=== PATIENT | male | born 1960 | race Caucasian/White ===

== ENCOUNTER 2024-05-27 20:07 | Observation (INO) ==
--- NOTE | 2024-05-27 21:05 | Emergency Department Note ---
History of Present Illness General Chief complaint: Hip Pain Stated complaint: LEFT HIP GROIN THIGH PAIN, Time Seen by Provider: 05/27/24 20:50 History of Present Illness Maximum Pain Intensity: 11 This is a 63-year-old male that presents to the emergency department via private vehicle with complaints of "left hip/leg pain". The patient notes that last Friday he developed pain in the lower abdomen bilaterally. No trauma. No injury. This past Friday the pain moved into the low back area and then left flank/left groin area. He notes that since Friday the pain has been severe and he has never experienced pain like this before in his life. He denies any lower extremity weakness, bowel or bladder incontinence, numbness or tingling in the genital region. No fevers or infectious symptoms. Pain worsens with ambulation and certain movements and is mildly better with rest/immobilization. The patient denies any abdominal pain at this time. He notes the pain radiates from the left hip region/low back into the left anterior thigh where there is numbness. He denies any pain with axial loading the leg. Home Medications Medication Instructions Recorded Confirmed Type aspirin 81 mg tablet,delayed 81 mg PO DAILY ##0 12/22/10 05/25/24 History release rosuvastatin 10 mg tablet 10 mg PO QAM 05/25/24 05/25/24 History cyclobenzaprine 10 mg tablet 10 mg PO TID PRN muscle spasm #15 05/26/24 Rx tabs methylprednisolone 4 mg tablets in See Rx Instructions .Route 05/26/24 Rx a dose pack (Medrol (Vincenzo)) .COMPLEX #21 ea Allergies Allergy/AdvReac Type Severity Reaction Status Date / Time No Known Allergies Allergy Unverified 05/25/24 08:55 Past Med/Surg History Problem List (Updated 05/28/24 @ 00:09 by Joon Sethi PA-C) Abnormal MRI, lumbar spine (Acute) Acute left lumbar radiculopathy (Acute) Abdominal wall pain in left flank (Acute) Medical History No pertinent past medical history Social History Smoking Status: Never smoker Preferred Language: Turkish Feels Safe at Home: Yes Review of Systems A total of 10 systems reviewed and were otherwise negative Physical Exam Vital Signs Vital Signs - 24 hr 05/27/24 20:15 05/27/24 21:28 05/27/24 22:08 Temperature 36.6 C Temperature Source Temporal Artery Scan Pulse Rate 81 Pulse Rate [Apical] 85 Pulse Rhythm [Apical] Regular Respiratory Rate 18 18 Respiratory Effort / Characteristics Non-Labored Spontaneous Non-Labored Spontaneous Respiratory Depth Normal Normal Respiratory Pattern Blood Pressure 142/73 H Blood Pressure [Right Arm] 160/92 H Blood Pressure Mean 96 Blood Pressure Mean [Right Arm] 114 Pulse Oximetry 95 96 96 Oxygen Delivery Method Room Air Room Air Room Air Sepsis Recent Fever Within 48 Hours No Sepsis New/Unexplained Change in Mental Status No Sepsis Action Taken by Nursing No Action Required 05/28/24 00:00 Temperature Temperature Source Pulse Rate Pulse Rate [Apical] 71 Pulse Rhythm [Apical] Regular Respiratory Rate 19 Respiratory Effort / Characteristics Non-Labored Spontaneous Respiratory Depth Normal Respiratory Pattern Regular Blood Pressure Blood Pressure [Right Arm] 141/91 H Blood Pressure Mean Blood Pressure Mean [Right Arm] 107 Pulse Oximetry 95 Oxygen Delivery Method Room Air Sepsis Recent Fever Within 48 Hours Sepsis New/Unexplained Change in Mental Status Sepsis Action Taken by Nursing VITAL SIGNS - Vital signs and nursing notes were reviewed. Stable, afebrile. GENERAL -63-year-old male appearing his stated age who is in no acute distress. Communicates well with provider and answers questions appropriately. SKIN - Without rashes. No meningeal or petechial rash. No herpetic lesions HEAD - NC/AT. EYES - Sclera anicteric. NOSE - Midline and without cyanosis. No epistaxis or purulent drainage noted. MOUTH/OROPHARYNX - Without perioral cyanosis. NECK - Neck with FROM. No nuchal rigidity. LUNGS - CTA CARDIAC - RRR ABDOMEN - Abdominal contour normal without pulsations or visible masses. BS normoactive all four quadrants. No tenderness, palpable masses, hepatosplenomegaly, or ascites noted. EXTREMITIES - No clubbing or peripheral cyanosis. +5/5 strength noted in UE/LE bilaterally. NEUROLOGIC - Cranial nerves grossly intact. Patellar reflexes +2/4. MUSCULOSKELETALno reproducible tenderness overlying the L-spine or paraspinous musculature. There is no left hip tenderness. Passive range of motion of the left hip does not reproduce any discomfort. Axial loading of the legs do not reproduce discomfort. PSYCH -alert, oriented and pleasant on exam. Course Administered Medications Discontinued Medications Dexamethasone Sodium Phosphate (DexamethasonePf 10 Mg/Ml Vial) 10 mg IV NOW ONE Stop: 05/27/24 23:26 Last Admin: 05/28/24 00:05 Dose: 10 mg Documented By: GI Ketorolac Tromethamine (Ketorolac Tromethamine 15 Mg/Ml Vial) 10 mg IV NOW ONE Stop: 05/27/24 23:26 Last Admin: 05/28/24 00:05 Dose: 10 mg Documented By: GI Lidocaine (Lidocaine 5% 1 Patch) 1 patch TD NOW STA Stop: 05/27/24 22:08 Last Admin: 05/27/24 22:17 Dose: 1 patch Documented By: CHRISTINE Morphine Sulfate (Morphine Sulfate 4 Mg/Ml 1 Ml Carp\\Vial) 4 mg IV NOW STA Stop: 05/27/24 21:03 Last Admin: 05/27/24 21:23 Dose: 4 mg Documented By: CONG Morphine Sulfate (Morphine Sulfate 2 Mg/Ml Carp) 2 mg IV NOW STA Stop: 05/27/24 23:26 Last Admin: 05/28/24 00:01 Dose: 2 mg Documented By: GI Ondansetron HCl (Ondansetron Inj 2 Mg/Ml 2 Ml Vial) 4 mg IV NOW STA Stop: 05/27/24 21:03 Last Admin: 05/27/24 21:23 Dose: 4 mg Documented By: CONG Medical Decision Making Laboratory Data 05/27/24 21:11 05/27/24 21:11 Lab Results 05/27/24 Range/Units 21:11 WBC 7.64 (4.8-10.8) K/ul RBC 4.95 (4.70-6.10) M/uL Hgb 16.0 (14.0-18.0) g/dl Hct 45.5 (42.0-52.0) % MCV 91.9 (80.0-100.0) fL MCH 32.3 (25.0-34.0) pg MCHC 35.2 (32.0-36.0) g/dL RDW Std Deviation 41.6 (36.4-46.3) fL RDW Coeff of Watson 12.3 (11.5-14.5) % Plt Count 227 (130-400) K/uL MPV 9.1 L (9.4-12.4) fL Immature Gran % (Auto) 0.3 % Neut % (Auto) 81.2 % Lymph % (Auto) 10.5 % Mitchell % (Auto) 7.3 % Eos % (Auto) 0.4 % Baso % (Auto) 0.3 % Neut # (Auto) 6.21 (1.40-6.50) K/uL Lymph # (Auto) 0.80 L (1.20-3.40) K/uL Mitchell # (Auto) 0.56 (0.11-0.59) K/uL Eos # (Auto) 0.03 (0.00-0.50) K/uL Baso # (Auto) 0.02 (0.00-0.20) K/uL Immature Gran # (Auto) 0.02 (0.01-0.20) K/uL Sodium 136 (136-145) mmol/L Potassium 4.6 (3.5-5.1) mmol/L Chloride 108 H (98-107) mmol/L Carbon Dioxide 22 (21-32) mmol/L Anion Gap 6 (3-11) BUN 19 (6-23) mg/dl Creatinine 1.05 (0.6-1.4) mg/dl Est Cr Clr Drug Dosing 82.6 ml/min eGFR 79.27 BUN/Creatinine Ratio 18.1 (10-20) Glucose 109 H (70-99(Fasting)) mg/dl Calcium 9.5 (8.6-10.3) mg/dl Total Bilirubin 0.6 (0.2-1.0) mg/dl AST 20 (13-39) U/L ALT 15 (7-52) U/L Alkaline Phosphatase 58 (34-104) U/L Total Protein 7.4 (6.0-8.3) gm/dl Albumin 4.4 (3.4-5.0) gm/dl Globulin 3.0 (2.5-4.0) gm/dl Albumin/Globulin Ratio 1.5 (0.9-2) Imaging Data Radiologist's Impression: Lumbar Spine MRI 05/27/24 21:02 Exam(s): MRI L SPINE Without Contrast EXAM: MR Lumbar Spine Without Intravenous Contrast CLINICAL HISTORY: Reason for exam: Low back pain, L leg numbness. TECHNIQUE: Magnetic resonance images of the lumbar spine without intravenous contrast in multiple planes. COMPARISON: Prior CT scan of the abdomen and pelvis from May 25, 2024. FINDINGS: Vertebrae: There are 5 lumbar type vertebral bodies with a mild levoscoliosis and dextroscoliosis of the thoracolumbar junction. There is a shallow lumbar lordosis. There is normal vertebral body height and alignment. The bone marrow signal is heterogeneous with reactive endplate changes, and areas of focal fat or venous malformations. There is a large Schmorl's node at the inferior endplate of L1 with mild bone marrow edema. No acute fracture. 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 Soft tissues: Moderate atrophy of the iliopsoas, paraspinous intraspinous musculature. There is increased fluid signal within the interspinous bursa at L3-4, L4-5 and L5-S1. The aorta and IVC flow voids are intact. The visualized kidneys are unremarkable. DISCS/SPINAL CANAL/NEURAL FORAMINA: L1-L2: There is mild disc degeneration with annular disc bulge causing a mild subarticular recess stenosis with disc extending to the neural foramina without evidence of impingement or significant stenosis. There is mild facet joint arthropathy with mild synovitis. L2-L3: There is mild disc degeneration with annular disc bulge asymmetric to the left with superimposed left paracentral disc extrusion measuring 16.7 mm (CC) by 3.3 mm (AP) causing a mild left subarticular recess stenosis. There is a mild spinal canal stenosis with thecal sac area measuring 0.89 cm. There is mild facet arthropathy with mild synovitis. L3-L4: Moderate disc degeneration with annular disc bulge causing mild subarticular recess stenosis with superimposed congenital intrahepatic levels causing a mild spinal canal stenosis with thecal sac area measuring 0.88 cm. There is disc and osteophyte extending to the neural foramina without impingement or significant stenosis. There is mild facet joint arthropathy with mild synovitis. L4-L5: Moderate disc degeneration with annular disc bulge asymmetric to the left causing a mild subarticular recess stenosis with disc and osteophyte extending to the neural foramina causing a mild right stenosis without evidence of neural impingement. There is mild facet joint arthropathy with mild synovitis. L5-S1: Moderate disc degeneration with a no disc bulge asymmetric to the left causing a mild right and moderate left subarticular recess stenosis with impingement of the transiting left S1 nerve root. There is disc and osteophyte extending to the neural foramina causing a mild right stenosis without evidence of neural impingement. There is mild facet arthropathy with mild synovitis. IMPRESSION: 1. Moderate disc degeneration at L3-4, L4-5, L5-S1 and mild disc degeneration at L1-2 and L2-3 with annular disc bulging or disc extrusion causing a mild subarticular recess stenosis at L1-L2, L2-3, L3-4, L4-5 and a mild right and moderate left subarticular recess stenosis at L5-S1 with impingement of the transiting left S1 nerve root. 2. There is a mild spinal canal stenosis at L2-3 and L3-4. 3. There is a mild right L4-5 and mild right L5-S1 neural foraminal stenosis without evidence of neural impingement. 4. There is mild facet joint arthropathy with mild synovitis. 5. Interspinous bursitis at L3-4, L4-5 and L5-S1. 6. No evidence of fracture, infection, tumor or arachnoiditis. Electronically signed by: Chen Moulton MD 05/27/24 23:08 PM MDM Narrative Patient was seen and evaluated as above in room D02. Review was performed of triage nursing notes and vital signs. I did review pertinent previous visits and patient history. After obtaining a thorough history and physical examination the above work up was performed. Patient presents to us today for assessment of left low back pain radiating to the left leg with left leg numbness that traverses to the left knee region. This seems to be in the lumbar dermatome. No deficits on assessment. Patient appears to be in pain on exam. No infectious symptoms. I will note rather unremarkable CT scan of the abdomen/pelvis was performed 2 days ago as well as laboratory studies. IV access with established. Labs were drawn. There is no leukocytosis or concerning anemia. No emergent metabolic disturbance. Patient was medicated here with IV morphine, IV Zofran and MRI of the L-spine was performed. Results as above. I reviewed the imaging as well. I do suspect much of this is a component of lumbar radiculopathy. Noting the patient's severity despite outpatient steroids, muscle relaxer, prescription analgesia such as Percocet, OTC analgesia like ibuprofen and acetaminophen as well as rest without relief with continued discomfort here despite medicine I do believe that further evaluation and management in the inpatient setting is warranted. I did order additional IV morphine, IV Toradol, IV dexamethasone. It was felt that the benefit outweighed risk. Case discussed with the hospitalist service. Please refer to further documentation regarding his stay. I do not suspect any emergent cord issue at this time. GCS: 15 In the evaluation and treatment of this patient the following differential diagnosis entertained: Fracture, dislocation, subluxation, cauda equina syndrome, AAA, diverticulitis, appendicitis, torsion, osteomyelitis, piriformis syndrome, strain, sprain, among others. Impression & Plan Acute left lumbar radiculopathy, Abnormal MRI, lumbar spine Discharge Plan Visit Data Chief Complaint: Hip Pain Stated Complaint: LEFT HIP GROIN THIGH PAIN, ED Provider: Raghavendra Biggs ED Midlevel Provider: Joon Sethi Discharge Problem: Acute left lumbar radiculopathy, Abnormal MRI, lumbar spine Patient Disposition: Admitted As Inpatient Condition: Good Forms Stand Alone Forms: My [facility] Prescriptions Prescriptions: No Action aspirin 81 mg Tablet,Delayed Release (Dr/Ec) 81 mg PO DAILY Qty: 0 rosuvastatin 10 mg tablet 10 mg PO QAM cyclobenzaprine 10 mg tablet 10 mg PO TID PRN (Reason: muscle spasm) Qty: 15 0RF methylprednisolone [Medrol (Vincenzo)] 4 mg tablets,dose pack See Rx Instructions .ROUTE .COMPLEX Qty: 21 0RF Rx Instructions: Take as directed on pack Referrals Referrals: Elio Ni MD [Primary Care Provider] -
[2024-05-27] MEDS: MoRPHine SULFATE 4 MG/ML 1 ML CARP\\VIAL IV STA (21:23)
[2024-05-27] MEDS: ONDANSETRON INJ 2 MG/ML 2 ML VIAL IV STA (21:23)
[2024-05-27 21:42] LABS: Basophils # (auto) 0.02 K/uL (0.00-0.20); Basophils % (auto) 0.3 %; Eosinophils # (auto) 0.03 K/uL (0.00-0.50); Eosinophils % (auto) 0.4 %; Hematocrit (blood only) 45.5 % (42.0-52.0); Immature Granulocytes # (auto) 0.02 K/uL (0.01-0.20); Immature Granulocytes % (auto) 0.3 %; Lymphocytes % (auto) 10.5 %; Mean Corpuscular Hemoglobin 32.3 pg (25.0-34.0); Mean Corpuscular Hgb Conc 35.2 g/dL (32.0-36.0); Mean Corpuscular Volume 91.9 fL (80.0-100.0); Mean Platelet Volume 9.1 fL (9.4-12.4); Monocytes # (auto) 0.56 K/uL (0.11-0.59); Monocytes % (auto) 7.3 %; Neutrophils # (auto) 6.21 K/uL (1.40-6.50); Neutrophils % (auto) 81.2 %; Platelet Count 227 K/uL (130-400); RDW Coefficient of Variation 12.3 % (11.5-14.5); RDW Standard Deviation 41.6 fL (36.4-46.3); Red Blood Count 4.95 M/uL (4.70-6.10); White Blood Count 7.64 K/ul (4.8-10.8)
[2024-05-27 21:50] LABS: Albumin Globulin Ratio 1.5 (0.9-2); Albumin Level 4.4 gm/dl (3.4-5.0); BUN Creatinine Ratio 18.1 (10-20); Bilirubin,Total 0.6 mg/dl (0.2-1.0); Calcium 9.5 mg/dl (8.6-10.3); Creatinine Clr Calc Pharmacy 82.6 ml/min; Potassium 4.6 mmol/L (3.5-5.1); Total Protein 7.4 gm/dl (6.0-8.3)
[2024-05-27] MEDS: LIDOCAINE 5% 1 PATCH TD STA (22:17)
--- NOTE | 2024-05-27 23:10 | Magnetic Resonance Report ---
Exam(s): MRI L SPINE Without Contrast EXAM: MR Lumbar Spine Without Intravenous Contrast CLINICAL HISTORY: Reason for exam: Low back pain, L leg numbness. TECHNIQUE: Magnetic resonance images of the lumbar spine without intravenous contrast in multiple planes. COMPARISON: Prior CT scan of the abdomen and pelvis from May 25, 2024. FINDINGS: Vertebrae: There are 5 lumbar type vertebral bodies with a mild levoscoliosis and dextroscoliosis of the thoracolumbar junction. There is a shallow lumbar lordosis. There is normal vertebral body height and alignment. The bone marrow signal is heterogeneous with reactive endplate changes, and areas of focal fat or venous malformations. There is a large Schmorl's node at the inferior endplate of L1 with mild bone marrow edema. No acute fracture. 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 Soft tissues: Moderate atrophy of the iliopsoas, paraspinous intraspinous musculature. There is increased fluid signal within the interspinous bursa at L3-4, L4-5 and L5-S1. The aorta and IVC flow voids are intact. The visualized kidneys are unremarkable. DISCS/SPINAL CANAL/NEURAL FORAMINA: L1-L2: There is mild disc degeneration with annular disc bulge causing a mild subarticular recess stenosis with disc extending to the neural foramina without evidence of impingement or significant stenosis. There is mild facet joint arthropathy with mild synovitis. L2-L3: There is mild disc degeneration with annular disc bulge asymmetric to the left with superimposed left paracentral disc extrusion measuring 16.7 mm (CC) by 3.3 mm (AP) causing a mild left subarticular recess stenosis. There is a mild spinal canal stenosis with thecal sac area measuring 0.89 cm. There is mild facet arthropathy with mild synovitis. L3-L4: Moderate disc degeneration with annular disc bulge causing mild subarticular recess stenosis with superimposed congenital intrahepatic levels causing a mild spinal canal stenosis with thecal sac area measuring 0.88 cm. There is disc and osteophyte extending to the neural foramina without impingement or significant stenosis. There is mild facet joint arthropathy with mild synovitis. L4-L5: Moderate disc degeneration with annular disc bulge asymmetric to the left causing a mild subarticular recess stenosis with disc and osteophyte extending to the neural foramina causing a mild right stenosis without evidence of neural impingement. There is mild facet joint arthropathy with mild synovitis. L5-S1: Moderate disc degeneration with a no disc bulge asymmetric to the left causing a mild right and moderate left subarticular recess stenosis with impingement of the transiting left S1 nerve root. There is disc and osteophyte extending to the neural foramina causing a mild right stenosis without evidence of neural impingement. There is mild facet arthropathy with mild synovitis. IMPRESSION: 1. Moderate disc degeneration at L3-4, L4-5, L5-S1 and mild disc degeneration at L1-2 and L2-3 with annular disc bulging or disc extrusion causing a mild subarticular recess stenosis at L1-L2, L2-3, L3-4, L4-5 and a mild right and moderate left subarticular recess stenosis at L5-S1 with impingement of the transiting left S1 nerve root. 2. There is a mild spinal canal stenosis at L2-3 and L3-4. 3. There is a mild right L4-5 and mild right L5-S1 neural foraminal stenosis without evidence of neural impingement. 4. There is mild facet joint arthropathy with mild synovitis. 5. Interspinous bursitis at L3-4, L4-5 and L5-S1. 6. No evidence of fracture, infection, tumor or arachnoiditis. Electronically signed by: Chen Moulton MD 05/27/24 23:08 PM
[2024-05-28] MEDS: MoRPHine SULFATE 2 MG/ML CARP IV STA (00:01)
[2024-05-28] MEDS: KETOROLAC TROMETHAMINE 15 MG/ML VIAL IV ONE (00:05)
[2024-05-28] MEDS: dexAMETHasone**PF** 10 MG/ML VIAL IV ONE (00:05)
[2024-05-28] MEDS: oxyCODONE HCL IR 5 MG TAB (IMMEDIATE RELEASE) PO PRN (03:51)
--- NOTE | 2024-05-28 04:13 | History & Physical Report ---
Date of Service May 28, 2024 Assessment & Plan (1) Acute left lumbar radiculopathy: Plan: 63-year-old male with past med history significant for hyperlipidemia, obstructive sleep apnea on CPAP comes because of severe back pain. Patient states since last Friday developed lower abdominal pain. On the Friday the pain was more in low back coming down to the groin area on the left side. He was in the ER on May 25 and CAT scan of abd/pelvis was done which showed mild to moderate fecal retention otherwise unremarkable study. Patient discharged home to follow-up with PCP. He was also called back again and prescribed cyclobenzaprine as needed and Medrol Dosepak. Patient was also taking Tylenol and ibuprofen as needed. But the pain was severe radiating to left groin region. And also was feeling numbness in the left thigh region which prompted him to come to back to the ER. Denies any bowel or bladder incontinence. Lying down is okay but states when he ambulates the pain shoots up. Denies any fevers. No chest pain or shortness of breath. No nausea or vomiting. No headache or dizziness. No blurred visions or double visions. No earache or runny nose or sore throat. Hemodynamics are okay. Patient was able to ambulate to the bathroom in the ER. Acute left lumbar radiculopathy Having pain in the back radiating to the left groin and numbness in left thigh region MRI results as above Received Decadron and pain meds in the ER Will monitor in medical floor Pain control [facility] consult in a.m. for further recommendations History of hyperlipidemia Statin Obstructive sleep apnea CPAP nightly DVT prophylaxis Lovenox Disposition Medical floor Full code. History of Present Illness Chief Complaint: Severe back pain Primary Care Provider: Elio Ni MD 63-year-old male with past med history significant for hyperlipidemia, obstructive sleep apnea on CPAP comes because of severe back pain. Patient states since last Friday developed lower abdominal pain. On the Friday the pain was more in low back coming down to the groin area on the left side. He was in the ER on May 25 and CAT scan of abd/pelvis was done which showed mild to moderate fecal retention otherwise unremarkable study. Patient discharged home to follow-up with PCP. He was also called back again and prescribed cyclobenzaprine as needed and Medrol Dosepak. Patient was also taking Tylenol and ibuprofen as needed. But the pain was severe radiating to left groin region. And also was feeling numbness in the left thigh region which prompted him to come to back to the ER. Denies any bowel or bladder incontinence. Lying down is okay but states when he ambulates the pain shoots up. Denies any fevers. No chest pain or shortness of breath. No nausea or vomiting. No headache or dizziness. No blurred visions or double visions. No earache or runny nose or sore throat. Hemodynamics are okay. Patient was able to ambulate to the bathroom in the ER. Past medical history. As mentioned above Past surgical history. Colonoscopy. Laparoscopic right inguinal hernia repair. Umbilical hernia repair. Social history. . No smoking. Alcohol social drinking. No drug use. Family history. Mother had leukemia. Uncle had CAD status post stents Allergies Allergy/AdvReac Type Severity Reaction Status Date / Time No Known Allergies Allergy Verified 05/28/24 00:34 Home Medications Medication Instructions Recorded Confirmed Type aspirin 81 mg tablet,delayed 81 mg PO DAILY 05/28/24 05/28/24 History release cyclobenzaprine 10 mg tablet 10 mg PO TID PRN Back Pain 05/28/24 05/28/24 History methylprednisolone 4 mg tablets in 4 mg PO UD 05/28/24 05/28/24 History a dose pack (Medrol (Vincenzo)) rosuvastatin 10 mg tablet 10 mg PO DAILY 05/28/24 05/28/24 History Past Med/Surg History Problem List (Updated 05/28/24 @ 00:09 by Joon Sethi PA-C) Abnormal MRI, lumbar spine (Acute) Acute left lumbar radiculopathy (Acute) Abdominal wall pain in left flank (Acute) Medical History No pertinent past medical history Social History Smoking Status: Former smoker Second Hand Exposure: No; Do You Dip or Chew Tobacco: No; Tobacco Cessation Education Requested by Patient: No Hx Alcohol Use: No Hx Substance Use: No Preferred Language: Occitan Communication Ability: Effective Mold Making Supervisor Required: No Beliefs That Will Affect Care: None Current Living Situation: Spouse Feels Safe at Home: Yes Safety Concerns: Feels Safe At This Time Assistive Devices: CPAP and Glasses Review of Systems Review of Systems: All systems reviewed & are unremarkable except as noted in HPI & below Physical Exam Physical Exam: General- Not in distress Head- atraumatic Eyes- PERRL. ENT- oropharynx clear Neck- supple, no JVD. Lungs- clear to auscultation no wheezing or crackles Heart- regular rate and rhythm; no murmur, no gallop. Abdomen- normal bowel sounds, soft, nontender, no distension. Extremities- no pretibial edema, no erythema seen Neuro- alert, oriented PERRL, no facial palsy; no dysarthria; moves extremities. Musculoskeletal no spinal tenderness, b/l straight leg raise test negative. Skin- warm & dry Results & Data Results & Data Vital Signs (Past 12 Hours) Vital Signs Temp Pulse Pulse Resp BP BP Pulse Ox 05/28/24 02:00 69 14 135/86 95 05/28/24 02:00 64 14 135/86 92 05/28/24 01:00 20 121/79 95 05/28/24 00:30 63 16 126/67 92 05/28/24 00:06 71 05/28/24 00:00 71 19 141/91 H 95 05/27/24 22:08 85 18 160/92 H 96 05/27/24 21:28 96 05/27/24 20:15 36.6 C 81 18 142/73 H 95 O2 Del Method 05/28/24 02:00 Room Air 05/28/24 02:00 Room Air 05/28/24 01:00 Room Air 05/28/24 00:30 Room Air 05/28/24 00:06 05/28/24 00:00 Room Air 05/27/24 22:08 Room Air 05/27/24 21:28 Room Air 05/27/24 20:15 Room Air Diagnostic Findings Laboratory Results WBC 7.64 K/ul (4.8-10.8) 05/27/24 21:11 RBC 4.95 M/uL (4.70-6.10) 05/27/24 21:11 Hgb 16.0 g/dl (14.0-18.0) 05/27/24 21:11 Hct 45.5 % (42.0-52.0) 05/27/24 21:11 MCV 91.9 fL (80.0-100.0) 05/27/24 21:11 MCH 32.3 pg (25.0-34.0) 05/27/24 21:11 MCHC 35.2 g/dL (32.0-36.0) 05/27/24 21:11 RDW Std Deviation 41.6 fL (36.4-46.3) 05/27/24 21:11 RDW Coeff of Watson 12.3 % (11.5-14.5) 05/27/24 21:11 Plt Count 227 K/uL (130-400) 05/27/24 21:11 MPV 9.1 fL (9.4-12.4) L 05/27/24 21:11 Immature Gran % (Auto) 0.3 % 05/27/24 21:11 Neut % (Auto) 81.2 % 05/27/24 21:11 Lymph % (Auto) 10.5 % 05/27/24 21:11 Pitkin % (Auto) 7.3 % 05/27/24 21:11 Eos % (Auto) 0.4 % 05/27/24 21:11 Baso % (Auto) 0.3 % 05/27/24 21:11 Neut # (Auto) 6.21 K/uL (1.40-6.50) 05/27/24 21:11 Lymph # (Auto) 0.80 K/uL (1.20-3.40) L 05/27/24 21:11 Pitkin # (Auto) 0.56 K/uL (0.11-0.59) 05/27/24 21:11 Eos # (Auto) 0.03 K/uL (0.00-0.50) 05/27/24 21:11 Baso # (Auto) 0.02 K/uL (0.00-0.20) 05/27/24 21:11 Immature Gran # (Auto) 0.02 K/uL (0.01-0.20) 05/27/24 21:11 Sodium 136 mmol/L (136-145) 05/27/24 21:11 Potassium 4.6 mmol/L (3.5-5.1) 05/27/24 21:11 Chloride 108 mmol/L (98-107) H 05/27/24 21:11 Carbon Dioxide 22 mmol/L (21-32) 05/27/24 21:11 Anion Gap 6 (3-11) 05/27/24 21:11 BUN 19 mg/dl (6-23) 05/27/24 21:11 Creatinine 1.05 mg/dl (0.6-1.4) 05/27/24 21:11 Est Cr Clr Drug Dosing 82.6 ml/min 05/27/24 21:11 eGFR 79.27 05/27/24 21:11 BUN/Creatinine Ratio 18.1 (10-20) 05/27/24 21:11 Glucose 109 mg/dl (70-99(Fasting)) H 05/27/24 21:11 Calcium 9.5 mg/dl (8.6-10.3) 05/27/24 21:11 Total Bilirubin 0.6 mg/dl (0.2-1.0) 05/27/24 21:11 AST 20 U/L (13-39) 05/27/24 21:11 ALT 15 U/L (7-52) 05/27/24 21:11 Alkaline Phosphatase 58 U/L (34-104) 05/27/24 21:11 Total Protein 7.4 gm/dl (6.0-8.3) 05/27/24 21:11 Albumin 4.4 gm/dl (3.4-5.0) 05/27/24 21:11 Globulin 3.0 gm/dl (2.5-4.0) 05/27/24 21:11 Albumin/Globulin Ratio 1.5 (0.9-2) 05/27/24 21:11 Impressions Lumbar Spine MRI 05/27/24 21:02 Exam(s): MRI L SPINE Without Contrast EXAM: MR Lumbar Spine Without Intravenous Contrast CLINICAL HISTORY: Reason for exam: Low back pain, L leg numbness. TECHNIQUE: Magnetic resonance images of the lumbar spine without intravenous contrast in multiple planes. COMPARISON: Prior CT scan of the abdomen and pelvis from May 25, 2024. FINDINGS: Vertebrae: There are 5 lumbar type vertebral bodies with a mild levoscoliosis and dextroscoliosis of the thoracolumbar junction. There is a shallow lumbar lordosis. There is normal vertebral body height and alignment. The bone marrow signal is heterogeneous with reactive endplate changes, and areas of focal fat or venous malformations. There is a large Schmorl's node at the inferior endplate of L1 with mild bone marrow edema. No acute fracture. 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 Soft tissues: Moderate atrophy of the iliopsoas, paraspinous intraspinous musculature. There is increased fluid signal within the interspinous bursa at L3-4, L4-5 and L5-S1. The aorta and IVC flow voids are intact. The visualized kidneys are unremarkable. DISCS/SPINAL CANAL/NEURAL FORAMINA: L1-L2: There is mild disc degeneration with annular disc bulge causing a mild subarticular recess stenosis with disc extending to the neural foramina without evidence of impingement or significant stenosis. There is mild facet joint arthropathy with mild synovitis. L2-L3: There is mild disc degeneration with annular disc bulge asymmetric to the left with superimposed left paracentral disc extrusion measuring 16.7 mm (CC) by 3.3 mm (AP) causing a mild left subarticular recess stenosis. There is a mild spinal canal stenosis with thecal sac area measuring 0.89 cm. There is mild facet arthropathy with mild synovitis. L3-L4: Moderate disc degeneration with annular disc bulge causing mild subarticular recess stenosis with superimposed congenital intrahepatic levels causing a mild spinal canal stenosis with thecal sac area measuring 0.88 cm. There is disc and osteophyte extending to the neural foramina without impingement or significant stenosis. There is mild facet joint arthropathy with mild synovitis. L4-L5: Moderate disc degeneration with annular disc bulge asymmetric to the left causing a mild subarticular recess stenosis with disc and osteophyte extending to the neural foramina causing a mild right stenosis without evidence of neural impingement. There is mild facet joint arthropathy with mild synovitis. L5-S1: Moderate disc degeneration with a no disc bulge asymmetric to the left causing a mild right and moderate left subarticular recess stenosis with impingement of the transiting left S1 nerve root. There is disc and osteophyte extending to the neural foramina causing a mild right stenosis without evidence of neural impingement. There is mild facet arthropathy with mild synovitis. IMPRESSION: 1. Moderate disc degeneration at L3-4, L4-5, L5-S1 and mild disc degeneration at L1-2 and L2-3 with annular disc bulging or disc extrusion causing a mild subarticular recess stenosis at L1-L2, L2-3, L3-4, L4-5 and a mild right and moderate left subarticular recess stenosis at L5-S1 with impingement of the transiting left S1 nerve root. 2. There is a mild spinal canal stenosis at L2-3 and L3-4. 3. There is a mild right L4-5 and mild right L5-S1 neural foraminal stenosis without evidence of neural impingement. 4. There is mild facet joint arthropathy with mild synovitis. 5. Interspinous bursitis at L3-4, L4-5 and L5-S1. 6. No evidence of fracture, infection, tumor or arachnoiditis. Electronically signed by: Chen Moulton MD 05/27/24 23:08 PM Code Status & VTE Plan VTE Prophylaxis Plan VTE Prophylaxis will be ordered: Yes
[2024-05-28] MEDS: HYDROmorphone INJ 0.5 MG/0.5 ML SYR IV PRN (05:37)
[2024-05-28 06:48] LABS: Hematocrit (blood only) 45.3 % (42.0-52.0); Hemoglobin 16.1 g/dl (14.0-18.0); Mean Corpuscular Hemoglobin 32.7 pg (25.0-34.0); Mean Corpuscular Hgb Conc 35.5 g/dL (32.0-36.0); Mean Corpuscular Volume 92.1 fL (80.0-100.0); Mean Platelet Volume 9.4 fL (9.4-12.4); Platelet Count 221 K/uL (130-400); RDW Coefficient of Variation 12.2 % (11.5-14.5); RDW Standard Deviation 41.2 fL (36.4-46.3); Red Blood Count 4.92 M/uL (4.70-6.10); White Blood Count 8.73 K/ul (4.8-10.8)
[2024-05-28 07:06] LABS: BUN Creatinine Ratio 21.7 (10-20); Calcium 9.5 mg/dl (8.6-10.3); Creatinine Clr Calc Pharmacy 104.5 ml/min; Magnesium 2.1 mg/dl (1.7-2.4); Potassium 4.7 mmol/L (3.5-5.1)
[2024-05-28 07:10] LABS: Basophils # (auto) 0.01 K/uL (0.00-0.20); Basophils % (auto) 0.1 %; Immature Granulocytes # (auto) 0.04 K/uL (0.01-0.20); Immature Granulocytes % (auto) 0.5 %; Lymphocytes # (auto) 0.51 K/uL (1.20-3.40); Lymphocytes % (auto) 5.8 %; Monocytes % (auto) 1.1 %; Neutrophils # (auto) 8.07 K/uL (1.40-6.50); Neutrophils % (auto) 92.5 %; Polychromasia 1+
[2024-05-28] MEDS: ASPIRIN 81 MG ECTAB PO SCH (08:11)
[2024-05-28] MEDS: LACTULOSE SYRUP 30 GM/45 ML UDP PO ONE (08:11)
[2024-05-28] MEDS: ROSUVASTATIN CALCIUM 10 MG TAB PO SCH (08:11)
[2024-05-28] MEDS: ENOXAPARIN INJ 40 MG/0.4 ML SYR SQ SCH (08:12)
[2024-05-28] MEDS: ACETAMINOPHEN 325 MG TAB PO PRN (09:44)
--- OUTSIDE RECORDS SUMMARY | 2024-05-28 12:31 | External Medical Summary | Summary of Care ---
Author Name Unknown Organization [facility] Address [address] [place] [address] Phone [phone] Care Team Providers Care Sustainable Design Coordinator Name Role Phone Elio Ni MD Primary Care Provider [phone]- [phone] Reason for Visit * Reason Onset Date Comments Advice 05/27/2024 Encounter Details Date Type Department Care Team (Late st Contact Info) Description 05/27/2024 Telephone [facility] [address] [place] [address] Elio Ni MD [address] [place] [address] Advice Allergies No known active allergiesdocumented as of this encounter (statuses as of 05/27/2024) Medications Medication Sig Dispensed Refills Start Date End Date Status ASPIRIN 81 MG PO TABS one daily Act presley Rosuvastatin Calcium 10 MG Oral Tablet (Crestor) TAKE 1 TABLET BY MOUTH EVERY MORNING 90 Tablet 3 12/19/2023 Active documented as of this encounter (statuses as of 05/27/2024) Active Problems Problem Noted Date Diagnosed Date BIENVENIDO on CPAP 11/22/2022 Umbilical hernia 09/09/2012 documented as of this encounter (statuses as of 05/27/2024) Resolved Problems Problem Noted Date Diagnosed Date Resolved Date Chronic rhinitis 10/16/2010 05/29/2011 Cough 10/16/2010 05/29/2011 Acute bronchitis, complicated 10/16/2010 05/29/2011 Acute sinusitis 10/16/2010 05/29/2011 Diarrhea 10/16/2010 05/29/2011 IMPACTED CERUMEN, BILATERAL 11/03/2006 05/29/2011 Hearing loss 11/03/2006 05/29/2011 Impotence of organic origin 11/03/2006 05/29/2011 documented as of this encounter (statuses as of 05/27/2024) Immunizations Name Administration Dates Next Due COVID-19 mRNA, LNP-s, No Pre serve, 2-Dose Series (Pfizer) 2020 Seasonal Influenza Vac., MDV , IM, 0.5 mL (Fluzone) 06/29/2014,06/22/2013,05/04/2012,2010,05/07/2010 Seasonal Influenza, PF, 6 M & above, IM , (FluLaval or Fluzone) 06/23/2023,05/21/2022,04/04/2020,2018,06/17/2018,07/21/2017 Seasonal Influenza, Quadriva lent, No Preserve, IM 04/09/2020,07/18/2016,06/04/2015 TD - Tetanus/Diptheria (ADULT) 01/09/2007 TDAP, Age 7 and older, IM (Adacel) 06/03/2012 Zoster Vaccine Recombinant (Shingrix) 07/13/2018 ,03/03/2018 documented as of this encounter Social History Tobacco Use Types Packs/Day Years Used Date Smoking Tobacco: Never Passive Smoke Exposure: Never Smokeless Tobacco: Never Alcohol Use Standard Drinks/Week Comments Yes 0 (1 standard drink = 0.6 oz pur e alcohol) social PHQ-2 Answer Date Recorded PHQ Adult Total Score 0 10/31/2022 Hunger Vital Sign Answer Date Recorded Within the past 12 months, y ou worried that your food would run out before you got the money to buy more. Never true 02/25/20 23 Within the past 12 months, t he food you bought just didn't last and you didn't have money to get more. Never true 02/24/2023 Childcare Answer Date Recorded Do you feel overwhelmed with taking care of a child, family member or friend? No 02/24/2023 Does your family need help f inding childcare? (Household - for ages 0-17 years) Not on file 02/24/2023 Clothing Answer Date Recorded Have you been unable to get clothing when it was really needed? No 02/24/2023 Is your family able to get c lothes or diapers when needed? (Household - for ages 0-17 years) Not on file 02/24/2023 Personal Safety Answer Date Recorded Do you feel unsafe or have concerns for your saf ety? No 02/24/2023 Do you have concerns for you r family's safety? (Household - for ages 0-17 years) Not on file 02/24/2023 Utilities Answer Date Recorded Do you have trouble paying y our heating, water, or electric bill? (Adult - for ages 18 years and over) Not on file 03/04/2024 Is your family able to pay t he heat, water, or electric bill? (Household - for ages 0-17 years) Not on file 03/04/2024 Does your family have access to good internet? (Household - for ages 0-17 years) Not on file 03/04/2024 Employment Status Answer Date Recorded Are you unemployed or without regular income? No 02/24/2023 Does the household have a re lar source of income? (Household - for ages 0-17 years) Not on file 02/24/2023 Social Connections Answer Date Recorded How often do you feel lonely or isolated from those around you? (Adult - for ages 18 years and over) Not on file 03/04/2024 Financial Resource Strain Answer Date R ecorded Do you have any trouble payi ng for your medications, or do you think you might in the future? No 02/24/2023 Does your family have troubl e paying for medicine? (Household - for ages 0-17 years) Not on file 02/24/2023 Transportation Needs Answer Date Record ed READ ONLY Do you have troubl e getting a ride to medical visits or work? Never True 02/24/2023 Does your family have a hard time getting a ride to doctors visits? (Household - for ages 0-17 years) Not on file 02/24/2023 Has lack of transportation k ept you from medical appointments, meetings, work, or from getting things needed for daily living? Check all that apply. (Adult - for ages 18 years and over) Not on file 02/24/2023 Do you (or your family) have trouble finding or paying for a ride (transportation)? (Household - for ages 0-17 years) Not on file 02/24/2023 Housing Stability Answer Date Recorded Do you currently live in a s helter or have no steady place to sleep at night? No 02/24/2023 READ ONLY Do you think you a re at risk of becoming homeless? No 02/24/2023 Does your family worry about paying for your home or becoming homeless? (Household - for ages 0-17 years) Not on file 0 02/24/2023 Are you homeless or worried that you might be in the future? (Adult - for ages 18 years and over) Not on file Are you (or your family) lucas eless or worried that you might be in the future? (Household - for ages 0-17 years) Not on file Food Insecurity Answer Date Recorded Do you need food for this week? No 02/24/2023 Are you able to get enough f ood for your family? (Household - for ages 0-17 years) Not on file 02/24/2023 Does your family need food t his week? (Household - for ages 0-17 years) Not on file 02/24/2023 Do you always have enough fo od for your family? (Household - for ages 0-17 years) Not on file 02/24/2023 Sex and Gender Information Value Date Recorded Sex Assigned at Male 03/09/2019 3:07 PM EDT Gender Identity Male 03/09/2019 3:07 PM EDT Sexual Orientation Straight 03/09/2019 3: 07 PM EDT Job Start Date Occupation Industry Not on file Not on file Not on file documented as of this encounter Miscellaneous Notes * Telephone Encounter - Karyna Salvador LPN - 05/27/2024 5:59 PM EDT Spoke with pt and he will have his drive him to his appointment tomorrow. Pt may need to lay down when he comes in tomorrow due to his pain. * Telephone Encounter - Elio Ni MD - 05/27/2024 2:31 PM EDT I see an ED visit in [facility] from 05/25/24, but that was for abd pain and there was no discussion of prednisone. Was he seen back in the ED yesterday? If so, please see if we can get ED Note - print andplace on my desk. Looks like Dr Makenzie has an appt open this evening. If not allowed to use that he can be put on my schedule for 4 PM and come in anytime - I will try to see him between other patients. * Telephone Encounter - Tamela Rao LPN - 05/27/2024 11:36 AM EDT Please advise, would you recommend patient return to the ED? Note placed on providers desk. * Telephone Encounter - Sharyn Herron OSA - 05/27/2024 8:10 AM EDT Pt has a follow up ER visit tomorrow 05/28, due to being in the ER with shooting pain from his lefthip down into his left thigh. ER did a CT scan and he was given pain meds and prednisone. This morning, he is stating now his left thigh is completely numb. He is asking if there is anyway he can be seen today, 05/27. Can you please advise. documented in this encounter Plan of Treatment Upcoming Encounters Date Type Department Care Team (Late st Contact Info) Description 05/28/2024 3:20 PM EDT Office Visit [facility] [address] [facility] [place] [phone] Elio Ni MD [address] [place] [address] 11/04/2024 9:00 AM EDT Office Visit [facility] [address] [place] [address] Elio Ni MD [address] [place] [address] 11/26/2024 10:30 AM EDT [facility] Visit [facility] [address] [place] [phone] Vivian Everett CRNP [address] [place] [id number] Scheduled Procedures Name Priority Associated Diagnoses Date/Ti me COLONOSCOPY FLEXIBLE PROXIMA L DIAGNOSTIC Recall History of colonic polyps Health Maintenance Due Date Last Done Comments Cologuard 2004 Fecal Occult Blood Test 2004 Sigmoidoscopy 2004 DTap/Tdap Vaccines (2 - Td or Tdap) 06/03/2022 06/03/2012, 01/09/2007 Depression Screening 11/01/2023 10/31/2022 COVID-19 Vaccine ( - season) 2024 2020 Influenza Vaccine (FLU shot) (#1) 2024 06/23/2023, 05/21/2022, 04/09/2020, Additional history exists Diabetes Screening 11/03/2026 11/04/2023, 0 11/19/2022, 11/01/2021, Additional history exists Lipid Panel 11/03/2028 11/04/2023, 11/02, 12/17/2021, Additional history exists Colonoscopy 03/25/2029 03/25/2024, 03/05, 09/04/2018, Additional history exists Colorectal Cancer Screening 03/25/2029 Zoster Vaccines Completed 07/13/2018, 03/03/2018 RETIRED - COLONOSCOPY-EVERY 5 YRS AGES 18-100 Discontinued 03/25/2024, 03/25/2024, 09/04/2018, Additional history exists HIV Screening Discontinued HPV (Gardasil) Vaccine Aged Out No lo nger eligible based on patient's age to complete this topic Hepatitis B Vaccine Aged Out No longe r eligible based on patient's age to complete this topic Hepatitis C Screening Discontinued MENINGOCOCCAL (MENACTRA/MENVEO) Aged Out No longer eligible based on patient's age to complete this topic Pneumococcal Vaccine: Pediatrics (0 to 5 Years) and At-Risk Patients (6 to 64 Years) Aged Out No longer eligible based on patient's age to complete this topic documented as of this encounter Medical Devices Implanted Type Area Electronics Maintenance Technician Device Identifier Shelf Expiration Date Model / Serial / Lot Mesh 3dmax 3.1x5.3in Rht Med - [id number] Implanted:Qty: 1 on 09/01/2020 by Conner Hale MD at OR [facility] Right: Groin CR BARD : DAVOL 08/31/2024 [id number] / / [id number] documented as of this encounter Advance Directives * Full Code (Latest Code Status on File) Date Activated Date Inactivated Comments 09/01/2020 9:52 AM 09/01/2020 5:46 PM This order r eflects the patients wishes and were consensually agreed upon. Care Teams Sustainable Design Coordinator Relationship Specialty Start Date End Date Elio Ni MD [address] [place] [address] PCP - General Family Medicine 03/09/19 documented as of this encounter
--- NOTE | 2024-05-28 14:05 | Pain Management Consultation ---
Date of Consultation May 28, 2024 Assessment & Plan (1) Acute left lumbar radiculopathy: (2) Herniation of intervertebral disc at L2-L3 level: Plan 1. The patient is suffering from central axial originating pain at the mid- lumbar level that radiates to the left lumbar paraspinal region, and is associated w/ radiation into the left lower extremity in a predominant L2/3 distribution pattern. His pain is position-dependent, but the worst pain is the radicular component. * Patient is recommended to undergo LEFT L2-3 transforaminal vs. LEFT paramedian L2-3 interlaminar CHELSEA. * The risks, benefits, and alternatives of the procedure were discussed in detail with the patient, and in full understanding of the procedure to be performed, the patient elects to proceed as discussed. 2. Will discuss w/ pain team about facilitating an injection plan. * Outpatient @ pain clinic. 3. Lovenox will need discontinued 24 hours prior to any pain management neuraxial procedure. 4. Will initiate gabapentin at 300 mg TID to better address neuropathic component of pain. * Order placed. 5. Initiated IV Decadron; 24 mg daily x3 days. * May consider eventual transition to PO steroid taper as outpatient if warranted. 6. Recommend discontinuing use of IV hydromorphone in preparation/optimization for discharge. 7. Patient was educated in detail on the potential development of cauda equina syndrome red flag symptoms (i.e. severe back pain, bilateral sciatica pain and altered sensation in the legs, bowel/bladder dysfunction, saddle anesthesia, sexual problems), and to contact our office immediately, or report to the ER, if they notice any of these. 8. Pain management service will sign off at this time and we will plan to see him in the pain clinic next week. History of Present Illness Reason for Consultation: "L2-L3 epidural injection for left disc herniation" Requesting Physician: Rustam Nolasco MD Attending Physician: Keegan Mei MD History of Present Illness Patient is a 63-year-old male with past med history significant for hyperlipidemia, obstructive sleep apnea on CPAP comes because of severe back pain. Patient stated he had developed lower abdominal pain. On Friday, the pain was more in the low back coming down to the groin area on the left side. He was in the ER on May 25 and CAT scan of abd/pelvis was done which showed mild to moderate fecal retention, but was otherwise an unremarkable study. Patient was discharged home to follow-up with PCP. He was also called back again and prescribed cyclobenzaprine as needed, as well as a Medrol Dosepak. Patient was also taking Tylenol and ibuprofen as needed. However, the pain was severe and radiating to the left groin region. He was also was feeling numbness in the left thigh region, which prompted him to come to back to the ER on 05/27/2024. He is reporting that lying down is okay, but when he ambulates the pain increases significantly. Patient was able to ambulate to the bathroom in the ED. However, he had been trying to manage things at home, but the pain was bad enough that he was unable to do so any longer. Dr. Nolasco saw patient and no surgery was recommended. Instead, he consulted the pain management service for consideration of procedural intervention. 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 Today, the patient was localizing pain to his left lumbosacral region, with radiation into the superior buttocks/posterior lateral hip, and then around the lateral hip and into the anterior thigh to the level of the knee. Additionally, he had pain that would wrap into the anterior hip/groin at times. Case discussed with Dr. Samanta Garcia. Pain Assessment Full Body Front + Back: 2 1. 2. 3. 4. Allergies Allergy/AdvReac Type Severity Reaction Status Date / Time No Known Allergies Allergy Verified 05/28/24 00:34 Home Medications Medication Instructions Recorded Confirmed Type aspirin 81 mg tablet,delayed 81 mg PO DAILY 05/28/24 05/28/24 History release cyclobenzaprine 10 mg tablet 10 mg PO TID PRN Back Pain 05/28/24 05/28/24 History methylprednisolone 4 mg tablets in 4 mg PO UD 05/28/24 05/28/24 History a dose pack (Medrol (Vincenzo)) rosuvastatin 10 mg tablet 10 mg PO DAILY 05/28/24 05/28/24 History gabapentin 300 mg capsule 300 mg PO TID 5 days #15 caps 05/30/24 Rx oxycodone 5 mg tablet 5 mg PO Q4H PRN pain #10 tabs 05/30/24 Rx Patient History Medical History No pertinent past medical history Social History Smoking Status: Former smoker Second Hand Exposure: No; Do You Dip or Chew Tobacco: No; Hx Alcohol Use: No Hx Substance Use: No Preferred Language: Greenlandic Communication Ability: Effective Physician'S Aide Required: No Beliefs That Will Affect Care: None Current Living Situation: Spouse Feels Safe at Home: Yes Assistive Devices: None Physical Exam 2 Physical Exam: GENERAL: Speech and cognition is intact. Mood and affect is appropriate. Does not appear in acute distress. HEAD: Normocephalic; atraumatic. NECK: Trachea is midline. CHEST: Regular chest respiration and excursion. EXTREMITIES: No TTP. Distal sensation and pulses intact bilaterally. BACK: Diminished ROM.+ Left lumbosacral tenderness. NEURO: CN II-XII grossly intact with no focal deficits noted. Normal gait. Awake, alert, and oriented x 3. Patellar Reflex R 2+L absent Achilles Reflex R 1+L 1+ SKIN: No lesions, erythema, or rashes noted. LOWER EXTREMITIES: Positive straight leg raise on the left. R Hip flexion 5/5; hip extension 5/5; knee extension 5/5; knee flexion 5/5; ankle dorsiflexion 5/5; ankle plantar flexion 5/5; EHL 5/5 L Hip flexion 4-/5; hip extension 5/5; knee extension 4-/5; knee flexion 5/5; ankle dorsiflexion 5/5; ankle plantar flexion 5/5; EHL 5/5
[2024-05-28] MEDS ORDERED: DEXAMETHASONE IV SCH (14:30)
[2024-05-28] MEDS: GABAPENTIN 300 MG CAP PO SCH (14:55)
[2024-05-28] MEDS: DEXTROSE 5% IV SCH (14:56)
[2024-05-28] MEDS: DEXAMETHASONE IV SCH (14:56)
--- NOTE | 2024-05-28 15:55 | Orthopedic Consultation ---
Date of Service May 28, 2024 History of Present Illness Reason for Consultation: Left leg radiculopathy. Requesting Physician: . Attending Physician: Keegan Mei MD 63-year-old male with past med history significant for hyperlipidemia, obstructive sleep apnea on CPAP comes because of severe back pain. Patient states since last Friday developed lower abdominal pain into the left groin region. He was in the ER on May 25 and CAT scan of abd/pelvis was done which showed mild to moderate fecal retention otherwise unremarkable study. Patient discharged home to follow-up with PCP. He was also called back again and prescribed cyclobenzaprine as needed and Medrol Dosepak. Patient was also taking Tylenol and ibuprofen as needed. But the pain was severe radiating to left groin region. And also was feeling numbness in the left thigh region which prompted him to come to back to the ER. Patient notes that if he is supine or sitting it is reasonable, but upright worsens his symptoms. Denies any bowel or bladder incontinence. Denies any fevers. No chest pain or shortness of breath. No nausea or vomiting. No headache or dizziness. No blurred visions or double visions. No earache or runny nose or sore throat. Hemodynamics are okay. Patient was able to ambulate to the bathroom in the ER. Exam reveals the patient to really not have any area of pain indicated lumbosacral sacral spine perhaps to a limited degree in the left lumbosacral region. Right leg motor was unremarkable, on the left leg, he had what I thought was appropriate strength for ankle plantar dorsiflexion EHL strength knee flexion extension strength though he might be slightly weaker with knee extension on the left than on the right, hip flexion was relatively unremarkable. Positive femoral stretch test. Exam(s): MRI L SPINE Without Contrast May 27, 2024 CLINICAL HISTORY: Reason for exam: Low back pain, L leg numbness. COMPARISON: Prior CT scan of the abdomen and pelvis from May 25, 2024. FINDINGS: Vertebrae: There are 5 lumbar type vertebral bodies with a mild levoscoliosis and dextroscoliosis of the thoracolumbar junction. There is a shallow lumbar lordosis. There is normal vertebral body height and alignment. The bone marrow signal is heterogeneous with reactive endplate changes, and areas of focal fat or venous malformations. There is a large Schmorl's node at the inferior endplate of L1 with mild bone marrow edema. No acute fracture. 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 Soft tissues: Moderate atrophy of the iliopsoas, paraspinous intraspinous musculature. There is increased fluid signal within the interspinous bursa at L3-4, L4-5 and L5-S1. The aorta and IVC flow voids are intact. The visualized kidneys are unremarkable. DISCS/SPINAL CANAL/NEURAL FORAMINA: L1-L2: There is mild disc degeneration with annular disc bulge causing a mild subarticular recess stenosis with disc extending to the neural foramina without evidence of impingement or significant stenosis. There is mild facet joint arthropathy with mild synovitis. L2-L3: There is mild disc degeneration with annular disc bulge asymmetric to the left with superimposed left paracentral disc extrusion measuring 16.7 mm (CC) by 3.3 mm (AP) causing a mild left subarticular recess stenosis. There is a mild spinal canal stenosis with thecal sac area measuring 0.89 cm. There is mild facet arthropathy with mild synovitis. L3-L4: Moderate disc degeneration with annular disc bulge causing mild subarticular recess stenosis with superimposed congenital intrahepatic levels causing a mild spinal canal stenosis with thecal sac area measuring 0.88 cm. There is disc and osteophyte extending to the neural foramina without impingement or significant stenosis. There is mild facet joint arthropathy with mild synovitis. L4-L5: Moderate disc degeneration with annular disc bulge asymmetric to the left causing a mild subarticular recess stenosis with disc and osteophyte extending to the neural foramina causing a mild right stenosis without evidence of neural impingement. There is mild facet joint arthropathy with mild synovitis. L5-S1: Moderate disc degeneration with a no disc bulge asymmetric to the left causing a mild right and moderate left subarticular recess stenosis with impingement of the transiting left S1 nerve root. There is disc and osteophyte extending to the neural foramina causing a mild right stenosis without evidence of neural impingement. There is mild facet arthropathy with mild synovitis. IMPRESSION: 1. Moderate disc degeneration at L3-4, L4-5, L5-S1 and mild disc degeneration at L1-2 and L2-3 with annular disc bulging or disc extrusion causing a mild subarticular recess stenosis at L1-L2, L2-3, L3-4, L4-5 and a mild right and moderate left subarticular recess stenosis at L5-S1 with impingement of the transiting left S1 nerve root. 2. There is a mild spinal canal stenosis at L2-3 and L3-4. 3. There is a mild right L4-5 and mild right L5-S1 neural foraminal stenosis without evidence of neural impingement. 4. There is mild facet joint arthropathy with mild synovitis. 5. Interspinous bursitis at L3-4, L4-5 and L5-S1. 6. No evidence of fracture, infection, tumor or arachnoiditis. Review of MRI images lumbar spine from May 27, 2024, is my separate interpretation, this reveals multilevel degenerative changes, but the main findings relative to the patient's left groin and anterior thigh symptomatology is coming from a left-sided disc herniation at L2-3 with resultant some lateral recess and foraminal stenosis at that level. Impression: Left leg radicular symptoms from an L2-3 lumbar disc herniation. Plan: Today I spent time reviewing the MRI images with the patient and his in the emergency room and went over these in detail. 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 At this time I told him to have based on his symptoms and the current size I would recommend evaluation by pain management for trial of an epidural injection either transforaminal or in the region on the left side in the interlaminar region and see if this helps to sufficiently reduce his symptoms along with appropriate medications. I told him that there is a very reasonable chance this will improve on its own without any surgical intervention, but if this fails at some point in future, a microdiscectomy on the left at L2-3 could be considered. I told the patient I definitely recommend conservative measures but to follow-up in my office if there is no significant improvement. Allergies Allergy/AdvReac Type Severity Reaction Status Date / Time No Known Allergies Allergy Verified 05/28/24 00:34 Home Medications Medication Instructions Recorded Confirmed Type aspirin 81 mg tablet,delayed 81 mg PO DAILY 05/28/24 05/28/24 History release cyclobenzaprine 10 mg tablet 10 mg PO TID PRN Back Pain 05/28/24 05/28/24 History methylprednisolone 4 mg tablets in 4 mg PO UD 05/28/24 05/28/24 History a dose pack (Medrol (Vincenzo)) rosuvastatin 10 mg tablet 10 mg PO DAILY 05/28/24 05/28/24 History Past Med/Surg History Problem List (Updated 05/28/24 @ 13:55 by Juliocesar Kumar PA-C) Herniation of intervertebral disc at L2-L3 level Abnormal MRI, lumbar spine (Acute) Acute left lumbar radiculopathy (Acute) Abdominal wall pain in left flank (Acute) Medical History No pertinent past medical history Social History Smoking Status: Former smoker Second Hand Exposure: No; Do You Dip or Chew Tobacco: No; Hx Alcohol Use: No Hx Substance Use: No Preferred Language: Greenlandic Communication Ability: Effective Diesel Engine Inspector Required: No Beliefs That Will Affect Care: None Current Living Situation: Spouse Feels Safe at Home: Yes Assistive Devices: None Review of Systems All systems reviewed & are unremarkable except as noted in HPI & below. Physical Exam . Results & Data Results & Data Laboratory Results . Diagnostic Findings . PG Care Time/CCT Total # of Minutes Spent Total Time Spent with Patient: Total time spent is greater than 50% in coordination of care (as documented) at patient's floor/unit and/or counseling patient: Coding Level of Care Code 07585 OFFICE CONSULT LVL 40M
[2024-05-29 07:41] LABS: Hemoglobin 15.4 g/dl (14.0-18.0); Mean Corpuscular Hemoglobin 32.3 pg (25.0-34.0); Mean Corpuscular Volume 92.2 fL (80.0-100.0); Mean Platelet Volume 9.7 fL (9.4-12.4); Platelet Count 242 K/uL (130-400); RDW Coefficient of Variation 12.3 % (11.5-14.5); RDW Standard Deviation 42.1 fL (36.4-46.3); Red Blood Count 4.77 M/uL (4.70-6.10); White Blood Count 9.97 K/ul (4.8-10.8)
[2024-05-29 08:02] LABS: BUN Creatinine Ratio 20.7 (10-20); Calcium 9.4 mg/dl (8.6-10.3); Creatinine Clr Calc Pharmacy 99.7 ml/min; Potassium 4.1 mmol/L (3.5-5.1)
[2024-05-29] MEDS: POLYETHYLENE (MIRALAX) 17 GM PACK PO PRN (08:25)
[2024-05-29 09:27] VITALS: O2SAT 96
--- NOTE | 2024-05-29 09:59 | Hospitalist Progress Note ---
Date of Service May 29, 2024 Assessment & Plan (1) Acute left lumbar radiculopathy: Plan: 63-year-old male with past med history significant for hyperlipidemia, obstructive sleep apnea on CPAP comes because of severe back pain. Patient states since last Friday developed lower abdominal pain. On the Friday the pain was more in low back coming down to the groin area on the left side. He was in the ER on May 25 and CAT scan of abd/pelvis was done which showed mild to moderate fecal retention otherwise unremarkable study. Patient discharged home to follow-up with PCP. He was also called back again and prescribed cyclobenzaprine as needed and Medrol Dosepak. Patient was also taking Tylenol and ibuprofen as needed. But the pain was severe radiating to left groin region. And also was feeling numbness in the left thigh region which prompted him to come to back to the ER. Denies any bowel or bladder incontinence. Lying down is okay but states when he ambulates the pain shoots up. Denies any fevers. No chest pain or shortness of breath. No nausea or vomiting. No headache or dizziness. No blurred visions or double visions. No earache or runny nose or sore throat. Hemodynamics are okay. Patient was able to ambulate to the bathroom in the ER. Acute left lumbar radiculopathy Left leg radicular symptoms from an L2-3 lumbar disc herniation. Having pain in the back radiating to the left groin and numbness in left thigh region MRI results as above Received Decadron and pain meds in the ER Will monitor in medical floor Pain control [facility] consulted for further recommendations Impression: Left leg radicular symptoms from an L2-3 lumbar disc herniation. Plan: ... disc herniation at L2-3 which I think is the new event causing his symptomatology, At this time, based on his symptoms and the current size I would recommend evaluation by pain management for trial of an epidural injection either transforaminal or in the region on the left side in the interlaminar region and see if this helps to sufficiently reduce his symptoms along with appropriate medications. ... there is a very reasonable chance this will improve on its own without any surgical intervention, but if this fails at some point in future, a microdiscectomy on the left at L2-3 could be considered. I told the patient I definitely recommend conservative measures but to follow-up in my office if there is no significant improvement. Pain management consulted * Patient is recommended to undergo LEFT L2-3 transforaminal vs. LEFT paramedian L2-3 interlaminar CHELSEA. * The risks, benefits, and alternatives of the procedure were discussed in detail with the patient, and in full understanding of the procedure to be performed, the patient elects to proceed as discussed. 2. Will discuss w/ pain team about facilitating an injection plan. * Inpatient vs. Outpatient @ pain clinic. 3. Lovenox will need discontinued 24 hours prior to any pain management neuraxial procedure. 4. Will initiate gabapentin at 300 mg TID to better address neuropathic component of pain. * Order placed. 5. Initiated IV Decadron; 24 mg daily x3 days. * May consider eventual transition to PO steroid taper as outpatient if warranted. Chronic conditions: History of hyperlipidemia Statin Obstructive sleep apnea CPAP nightly DVT prophylaxis Lovenox Disposition Medical floor Full code. Admission and Anticipated Discharge Date Admission Date: May 28, 2024 Subjective Pt seen in follow up of back pain Currently sitting up in bed, in NAD, feeling much better. Pain is much better controlled. No fever, chills, chest pain, shortness of breath. Review of Systems Review of Systems: All systems reviewed & are unremarkable except as noted in Subjective Physical Exam Physical Exam: General- Not in distress Head- atraumatic Eyes- PERRL. ENT- oropharynx clear Neck- supple, no JVD. Lungs- clear to auscultation no wheezing or crackles Heart- regular rate and rhythm; no murmur, no gallop. Abdomen- normal bowel sounds, soft, nontender, no distension. Extremities- no pretibial edema, no erythema seen Neuro- alert, oriented PERRL, no facial palsy; no dysarthria; moves extremities. Skin- warm & dry Results & Data Results & Data Vital Signs (Past 12 Hours) Vital Signs Temp Pulse Resp BP Pulse Ox O2 Del Method 05/29/24 09:25 36.5 C 82 18 96/67 L 96 Room Air Laboratory Results 05/29/24 Range/Units 06:17 WBC 9.97 (4.8-10.8) K/ul RBC 4.77 (4.70-6.10) M/uL Hgb 15.4 (14.0-18.0) g/dl Hct 44.0 (42.0-52.0) % MCV 92.2 (80.0-100.0) fL MCH 32.3 (25.0-34.0) pg MCHC 35.0 (32.0-36.0) g/dL RDW Std Deviation 42.1 (36.4-46.3) fL RDW Coeff of Watson 12.3 (11.5-14.5) % Plt Count 242 (130-400) K/uL MPV 9.7 (9.4-12.4) fL Sodium 138 (136-145) mmol/L Potassium 4.1 (3.5-5.1) mmol/L Chloride 107 (98-107) mmol/L Carbon Dioxide 23 (21-32) mmol/L Anion Gap 8 (3-11) BUN 18 (6-23) mg/dl Creatinine 0.87 (0.6-1.4) mg/dl Est Cr Clr Drug Dosing 99.7 ml/min eGFR 96.35 BUN/Creatinine Ratio 20.7 H (10-20) Glucose 99 (70-99(Fasting)) mg/dl Calcium 9.4 (8.6-10.3) mg/dl Phosphorus 4.0 (2.5-4.9) mg/dl Magnesium 2.0 (1.7-2.4) mg/dl Medications Administered Current Inpatient Medications Acetaminophen (Acetaminophen 325 Mg Tab) 650 mg PO Q4H PRN PRN Reason: pain/fever Stop: 06/27/24 03:22 Last Admin: 05/28/24 09:44 Dose: 650 mg Aspirin (Aspirin 81 Mg Ectab) 81 mg PO DAILY JAYCE Stop: 06/27/24 08:59 Last Admin: 05/29/24 08:06 Dose: 81 mg Enoxaparin Sodium (Enoxaparin Inj 40 Mg/0.4 Ml Syr) 40 mg SQ Q24H JAYEC Stop: 06/27/24 08:59 Last Admin: 05/29/24 08:07 Dose: 40 mg Gabapentin (Gabapentin 300 Mg Cap) 300 mg PO TID JAYCE Stop: 06/27/24 13:59 Last Admin: 05/29/24 08:06 Dose: 300 mg Hydromorphone HCl (Hydromorphone Inj 0.5 Mg/0.5 Ml Syr) 0.5 mg IV Q4H PRN PRN Reason: Severe Pain (Scale 7, 8, 9,10) Stop: 06/11/24 03:22 Last Admin: 05/28/24 05:37 Dose: 0.5 mg Dexamethasone 24 mg/ Dextrose 31 mls @ 50 mls/hr IV Q24H [facility] Stop: 05/31/24 14:29 Last Infusion: 05/28/24 15:38 Dose: Infused Oxycodone HCl (Oxycodone Hcl Ir 5 Mg Tab (Immediate Release)) 5 mg PO Q4H PRN PRN Reason: Moderate Pain (Scale 4, 5, 6) Stop: 06/11/24 03:22 Last Admin: 05/28/24 09:45 Dose: 5 mg Polyethylene Glycol (Polyethylene (Miralax) 17 Gm Pack) 17 gm PO DAILY PRN PRN Reason: Constipation Stop: 06/27/24 03:22 Last Admin: 05/29/24 08:25 Dose: 17 gm Rosuvastatin Calcium (Rosuvastatin Calcium 10 Mg Tab) 10 mg PO DAILY [facility] Stop: 06/27/24 08:59 Last Admin: 05/29/24 08:06 Dose: 10 mg
--- NOTE | 2024-05-29 13:54 | Orthopedic Progress Note ---
Date of Service May 29, 2024 Subjective Patient seen and examined, he is definite improvement in his left leg symptomatology and has been able to mobilize better in the last day. Improved sensation left anterior thigh. Impression: L2-3 left disc herniation with combination of L2 and L3 radiculopathy left leg. Plan: In talking with patient, he clearly feels he is improving, he was evaluated by pain management as noted coming injections 3 days, he is anticipating discharge tomorrow. I have recommended follow up two weeks after injections. Review of Systems All systems reviewed & are unremarkable except as noted in HPI & below. Physical Exam . Results & Data Results & Data Laboratory Results . Diagnostic Findings . PG Care Time/CCT Total # of Minutes Spent Total Time Spent with Patient: Total time spent is greater than 50% in coordination of care (as documented) at patient's floor/unit and/or counseling patient: Coding Level of Care Code 54146 SUB INP/OBS CARE 08/28MIN
[2024-05-30 07:41] VITALS: BP 131/78; PULSE 70; RESP 16; TEMP 98.4
[2024-05-30 09:20] LABS: BUN Creatinine Ratio 26.3 (10-20); Calcium 9.2 mg/dl (8.6-10.3); Creatinine Clr Calc Pharmacy 114.2 ml/min; Phosphorus 4.4 mg/dl (2.5-4.9); Potassium 3.9 mmol/L (3.5-5.1)
[2024-05-30 09:42] LABS: Hematocrit (blood only) 42.9 % (42.0-52.0); Hemoglobin 15.2 g/dl (14.0-18.0); Mean Corpuscular Hemoglobin 31.9 pg (25.0-34.0); Mean Corpuscular Hgb Conc 35.4 g/dL (32.0-36.0); Mean Corpuscular Volume 90.1 fL (80.0-100.0); Mean Platelet Volume 9.7 fL (9.4-12.4); Platelet Count 254 K/uL (130-400); RDW Standard Deviation 39.8 fL (36.4-46.3); Red Blood Count 4.76 M/uL (4.70-6.10)
--- NOTE | 2024-05-30 12:39 | Discharge Summary ---
Date of Service May 30, 2024 Admission HPI Per Admitting Provider 63-year-old male with past med history significant for hyperlipidemia, obstructive sleep apnea on CPAP comes because of severe back pain. Patient states since last Friday developed lower abdominal pain. On the Friday the pain was more in low back coming down to the groin area on the left side. He was in the ER on May 25 and CAT scan of abd/pelvis was done which showed mild to moderate fecal retention otherwise unremarkable study. Patient discharged home to follow-up with PCP. He was also called back again and prescribed cyclobenzaprine as needed and Medrol Dosepak. Patient was also taking Tylenol and ibuprofen as needed. But the pain was severe radiating to left groin region. And also was feeling numbness in the left thigh region which prompted him to come to back to the ER. Denies any bowel or bladder incontinence. Lying down is okay but states when he ambulates the pain shoots up. Denies any fevers. No chest pain or shortness of breath. No nausea or vomiting. No headache or dizziness. No blurred visions or double visions. No earache or runny nose or sore throat. Hemodynamics are okay. Patient was able to ambulate to the bathroom in the ER. Past medical history. As mentioned above Past surgical history. Colonoscopy. Laparoscopic right inguinal hernia repair. Umbilical hernia repair. Social history. . No smoking. Alcohol social drinking. No drug use. Family history. Mother had leukemia. Uncle had CAD status post stents Admission Exam Per Admitting Provider General- Not in distress Head- atraumatic Eyes- PERRL. ENT- oropharynx clear Neck- supple, no JVD. Lungs- clear to auscultation no wheezing or crackles Heart- regular rate and rhythm; no murmur, no gallop. Abdomen- normal bowel sounds, soft, nontender, no distension. Extremities- no pretibial edema, no erythema seen Neuro- alert, oriented PERRL, no facial palsy; no dysarthria; moves extremities. Musculoskeletal no spinal tenderness, b/l straight leg raise test negative. Skin- warm & dry Principal Diagnosis Left leg radicular symptoms from an L2-3 lumbar disc herniation Discharge Exam General- Not in distress Head- atraumatic Eyes- PERRL. ENT- oropharynx clear Neck- supple, no JVD. Lungs- clear to auscultation no wheezing or crackles Heart- regular rate and rhythm; no murmur, no gallop. Abdomen- normal bowel sounds, soft, nontender, no distension. Extremities- no pretibial edema, no erythema seen Neuro- alert, oriented PERRL, no facial palsy; no dysarthria; moves extremities. Skin- warm & dry Discharge Data Allergies Allergy/AdvReac Type Severity Reaction Status Date / Time No Known Allergies Allergy Verified 05/28/24 00:34 Consultations 05/27/24 23:35 ED Decision to Admit Stat 05/28/24 08:00 Consult Orthopedic Spine Surgery Routine 05/28/24 12:09 Consult Pain Management Routine Ordered Studies 05/27/24 21:02 MR lumbar spine wo con Stat IMPRESSION: 1. Moderate disc degeneration at L3-4, L4-5, L5-S1 and mild disc degeneration at L1-2 and L2-3 with annular disc bulging or disc extrusion causing a mild subarticular recess stenosis at L1-L2, L2-3, L3-4, L4-5 and a mild right and moderate left subarticular recess stenosis at L5-S1 with impingement of the transiting left S1 nerve root. 2. There is a mild spinal canal stenosis at L2-3 and L3-4. 3. There is a mild right L4-5 and mild right L5-S1 neural foraminal stenosis without evidence of neural impingement. 4. There is mild facet joint arthropathy with mild synovitis. 5. Interspinous bursitis at L3-4, L4-5 and L5-S1. 6. No evidence of fracture, infection, tumor or arachnoiditis. Hospital Course (1) Acute left lumbar radiculopathy: 63-year-old male with past med history significant for hyperlipidemia, obstructive sleep apnea on CPAP comes because of severe back pain. Patient states since last Friday developed lower abdominal pain. On the Friday the pain was more in low back coming down to the groin area on the left side. He was in the ER on May 25 and CAT scan of abd/pelvis was done which showed mild to moderate fecal retention otherwise unremarkable study. Patient dischar ged home to follow-up with PCP. He was also called back again and prescribed cyclobenzaprine as needed and Medrol Dosepak. Patient was also taking Tylenol and ibuprofen as needed. But the pain was severe radiating to left groin region. And also was feeling numbness in the left thigh region which prompted him to come to back to the ER. Denies any bowel or bladder incontinence. Lying down is okay but states when he ambulates the pain shoots up. Denies any fevers. No chest pain or shortness of breath. No nausea or vomiting. No headache or dizziness. No blurred visions or double visions. No earache or runny nose or sore throat. Hemodynamics are okay. Patient was able to ambulate to the bathroom in the ER. Acute left lumbar radiculopathy Left leg radicular symptoms from an L2-3 lumbar disc herniation. Having pain in the back radiating to the left groin and numbness in left thigh region MRI results as above Received Decadron and pain meds in the ER Will monitor in medical floor Pain control [facility] consulted for further recommendations Impression: Left leg radicular symptoms from an L2-3 lumbar disc herniation. Plan: ... disc herniation at L2-3 which I think is the new event causing his symptomatology, At this time, based on his symptoms and the current size I would recommend evaluation by pain management for trial of an epidural injection either transforaminal or in the region on the left side in the interlaminar region and see if this helps to sufficiently reduce his symptoms along with appropriate medications. ... there is a very reasonable chance this will improve on its own without any surgical intervention, but if this fails at some point in future, a microdiscectomy on the left at L2-3 could be considered. I told the patient I definitely recommend conservative measures but to follow-up in my office if there is no significant improvement. Pain management consulted * Patient is recommended to undergo LEFT L2-3 transforaminal vs. LEFT paramedian L2-3 interlaminar CHELSEA. * The risks, benefits, and alternatives of the procedure were discussed in detail with the patient, and in full understanding of the procedure to be performed, the patient elects to proceed as discussed. 2. Will discuss w/ pain team about facilitating an injection plan. * Inpatient vs. Outpatient @ pain clinic. 3. Lovenox will need discontinued 24 hours prior to any pain management ne uraxial procedure. 4. Will initiate gabapentin at 300 mg TID to better address neuropathic component of pain. * Order placed. 5. Initiated IV Decadron; 24 mg daily x3 days. * May consider eventual transition to PO steroid taper as outpatient if warranted. 05/30/24 - Pt is feeling much better. Able to ambulate in room and into hallway. Plans to follow up with pain clinic on Friday for injection. In the meantime, will continue PO steroid, gabapentin, and as needed baclofen/ oxycodone. Chronic conditions: History of hyperlipidemia Statin Obstructive sleep apnea CPAP nightly Total Time Total Time Spent Total Time Spent (In Minutes): 40 Discharge Plan Discharge Items Patient Disposition: Home - Self-Care Reason For Visit: SEVERE BACK PAIN Discharge Diagnosis: Left leg radicular symptoms from an L2-3 lumbar disc herniation Condition on Discharge: Good Activity: Per Instructions section Non-emergency contact: Primary Care Provider, Surgeon and Specialist Call non-emergency contact if: you have any medication questions and your symptoms worsen Follow-up/Referrals: Elio Ni MD [Primary Care Provider] - Diet: Heart Healthy Addtl Attending Provider Instructions: Follow up with pain management as scheduled, on Friday06/01/2024. Continue taking methylprednisolone (taper as was already prescribed in ER). Take gabapentin 300 mg three times a day. If needed, you can also take oxycodone and / or baclofen as prescribed. Stop taking aspirin for now - resume after your procedure with pain management. Pending Studies at Discharge: No Stand-Alone Forms: My [facility], Pain - Opioid Pain Management, Smoking Cessation Medications and DC Order Prescriptions: New gabapentin 300 mg Capsule 300 mg PO TID 5 Days Qty: 15 0RF oxycodone 5 mg Tablet 5 mg PO Q4H PRN (Reason: pain) Qty: 10 0RF Continued rosuvastatin 10 mg tablet 10 mg PO DAILY cyclobenzaprine 10 mg Tablet 10 mg PO TID PRN (Reason: Back Pain) methylprednisolone [Medrol (Vincenzo)] 4 mg Tablets,Dose Pack 4 mg PO UD Rx Instructions: Medrol dose pack as directed Held aspirin 81 mg Tablet,Delayed Release (Dr/Ec) 81 mg PO DAILY Hold Instructions: Resume on 05/19/24. Discharge Orders: Discharge Order (Routine); Ordered 05/30/24 Ordered By: Keegan Ramirez/Other Patient Handouts: Preventing Deep Vein Thrombosis, ED Herniated Intervertebral Disk Admission Data Admit Date/Time: 05/28/24 02:25 Attending Provider: Keegan Mei Admit Provider: Greg Badillo Primary Care Provider: Elio Ni Other Providers: Greg Badillo; Rustam Nolasco; Samanta Garcia Other Interventions: Discharge Summary Assessment (RN) Last Done: 05/30/24 12:47
== END 2024-05-30 13:38 | disposition home or self-care (01) | DRG 552 ==
LOC: ED 20:07 → INTOOBSV 05-28 02:25 → EDINP 05-28 02:25 → SUATTDRO 05-28 02:25 → 3W 05-28 03:23